=== PATIENT | male | born 1965 | race Caucasian/White ===

== ENCOUNTER 2022-08-22 14:22 | Emergency (ER) | payer OTHER, SELFPAY ==
--- NOTE | ~2022-08-22 | XR_ITS ---
EXAMINATION: XR knee RT min 4V DATE: 08/22/2022 15:30 INDICATION: One month of right knee pain TECHNIQUE: Anteroposterior, 2 oblique and crosstable lateral views of the right knee were obtained COMPARISON: None. FINDINGS: Alignment is normal. No fracture. Small marginal osteophytes at the medial in all 3 compartments wit h at least mild, potentially moderate joint space narrowing in the patellofemoral compartment. No kai dent joint space narrowing the medial and lateral compartment although this could be underestimated o n nonweightbearing imaging. No joint effusion/layering lipohemarthrosis. Soft tissues are unremarkabl e. IMPRESSION: 1. No right knee joint effusion or acute osseous abnormality. 2. Mild to moderate patellofemoral compartment predominant tricompartmental osteoarthritis. Reviewed, dictated and finalized at location A. IMPRESSION: 1. No right knee joint effusion or acute osseous abnormality. 2. Mild to moderate patellofemoral compartment predominant tricompartmental ost eoarthritis.
--- NOTE | ~2022-08-22 | XR_ITS ---
EXAMINATION: XR foot RT min 3V DATE: 08/22/2022 15:30 INDICATION: Ulcer at the lateral right foot TECHNIQUE: Dorsoplantar, two oblique and lateral views of the right foot were obtained. COMPARISON: None. FINDINGS: Pes planus suggested although specificities decreased on nonweightbearing imaging. Hallux valgus. The re is mild lateral subluxation at the second distal interphalangeal joint. Old healed fracture at the proximal diaphysis of the right fifth metatarsal. No acute fracture identified. Polyarticular osteoa rthritis, moderate severity at the naviculocuneiform and second tarsal metatarsal joints and mild at the remaining tarsal metatarsal, first metatarsophalangeal and several interphalangeal joints. Chroni c heterotopic ossification along the medial side of the head and neck the first metatarsal. No cortic al erosions or acute appearing periosteal reaction to suggest osteomyelitis. Small plantar calcaneal spur. No ankle joint effusion. Soft tissue swelling about the lateral aspect of the mid and forefoot. No evident soft tissue gas. IMPRESSION: 1. Mild to moderate polyarticular osteoarthritis in the right mid and forefoot. No acute osseous abno rmality. Reviewed, dictated and finalized at location A. IMPRESSION: 1. Mild to moderate polyarticular osteoarthritis in the right mid and forefoot. No acute osseous abnormality.
[2022-08-22 14:24] VITALS: BP 153/101; PULSE 112; RESP 20; TEMP 36.4; O2SAT 98
--- NOTE | 2022-08-22 15:06 | ED.LOWEXIN ---
HPI - Extremity Injury (Lower) General Chief Complaint: Extremity Injury, Lower Stated Complaint: knee pain Time Seen by Provider: 08/22/22 14:44 Source: patient Mode of arrival: ambulatory Limitations: no limitations History of Present Illness HPI Narrative: Patient is a 57 y/o male who presents to the ED with c/o R knee pain. Patient reports having pain persistently in his R medial knee for the past 1 month, occuring daily, worse with movement, bearing weight. He denies any injury or unusual activity. He has tried using an kylie bandage, tylenol/ibuprofen, lidocaine patches without much relief. He states he is having trouble even getting through an 8-hour shift at work due to the pain. Denies any significant swelling, redness, warmth to knee. Denies calf pain or swelling. Patient does also report having a slow healing wound to his right lateral foot which he has been bandaging himself. He denies history of diabetes. Denies any fevers or drainage. Patient is a daily drinker. Related Data Allergies Allergy/AdvReac Type Severity Reaction Status Date / Time No Known Allergies Allergy Mild Verified 08/22/22 14:26 Review of Systems Review of Systems: CONSTITUTIONAL: Denies fever, chills, or sweats. SKIN: See HPI. MUSCULOSKELETAL: See HPI. NEUROLOGIC: Denies tingling, numbness, or weakness. All systems reviewed & are unremarkable except as noted in HPI and below PMFSH Social History Social History (Updated 08/22/22 @ 15:28 by Misty Hagan PA-C) Smoking status: Never smoker Alcohol intake: current Alcohol use details: daily Exam Narrative: GENERAL: Well appearing, obese with BMI of 32.5, non-toxic, in no acute distress. HEAD: Normocephalic, atraumatic. NECK: Supple. No adenopathy, no masses. RESPIRATORY: Airway patent, respirations nonlabored. Clear to auscultation bilaterally, no rales, rhonchi, wheezing. CARDIOVASCULAR: Regular rate and rhythm without murmurs, rubs, or gallops. Pedal pulses 2+ and equal bilaterally. MUSCULOSKELETAL: Mild limited ROM of R knee flexion d/t pain. TTP along inferior medial joint space. No tenderness with ballottement of patella. No significant swelling noted. No warmth or erythema to anterior knee. No calf tenderness or edema. SKIN: Warm, dry, normal color. No rashes. Small 1 X 0.5cm ulceration to lateral edge of R distal foot, plantar surface. No eschar or necrosis present. Wound edges are pink and appear to be healing, without evidence of drainage/purulence. No surrounding erythema or warmth. No tenderness to palpation surrounding ulcer. NEURO: A&O X3. Speech clear. Cranial nerves II-XII grossly intact. Steady gait. No ataxic movements. PSYCHIATRIC: Appropriate mood and affect. Normal interaction. Course Vital Signs Vital signs: Vital Signs Temperature 97.6 F 08/22/22 14:24 Pulse Rate 112 H 08/22/22 14:24 Respiratory Rate 20 08/22/22 14:24 Blood Pressure 153/101 H 08/22/22 14:24 Pulse Oximetry 98 08/22/22 14:24 Oxygen Delivery Room Air 08/22/22 14:24 Temperature 97.3 F L 08/22/22 18:14 Pulse Rate 98 08/22/22 18:14 Respiratory Rate 18 08/22/22 18:14 Blood Pressure 167/97 H 08/22/22 18:14 Pulse Oximetry 99 08/22/22 18:14 Oxygen Delivery Room Air 08/22/22 14:24 MDM - Extremity Injury (Lower) MDM Narrative Medical decision making narrative: Patient presented to ED with 1 month history of right knee pain, also reporting ulcer to right lateral foot. Patient's injury is consistent with musculoskeletal etiology. No signs of neurologic or vascular compromise on physical examination. Compartments are soft without signs of compartment syndrome. XR of R knee showing osteoarthritis, no joint effusion or acute osseous abnormality. Ulcer of foot actually appears well, does not look acutely infected, no drainage, no signs of necrosis or eschar. XR of R foot without evidence for osteomyelitis or soft tissue gas. Basic blood work was o
[2022-08-22 15:33] LABS: Basophils Absolute Auto 0.1 K/mm3 (0.0-0.1); Eosinophils Absolute Auto 0.3 K/mm3 (0-0.3); Eosinophils Percent Auto 4.4 % (0-4.4); Hematocrit 41.4 % (42.0-52.0); Hemoglobin 13.6 g/dL (14.0-18.0); Immature Granulocyte Absolute 0.03 K/mm3 (0.00-0.031); Immature Granulocyte Percent A 0.5 % (0-0.5); Lymphocytes Absolute Auto 2.04 K/mm3 (0.9-3.2); Lymphocytes Percent Auto 34.7 % (18.3-44.2); Mean Corpuscular HGB Conc 32.9 g/dl (32-36); Mean Corpuscular Hemoglobin 34.2 pg (26-34); Mean Platelet Volume 8.8 fl (7.4-10.4); Monocytes Absolute Auto 0.7 K/mm3 (0.1-0.6); Monocytes Percent Auto 11.4 % (2.6-8.5); Neutrophils Absolute Auto 2.8 K/mm3 (1.3-6.7); Platelet Count Result 371 k/mm3 (150-375); Red Blood Count 3.98 M/mm3 (4.6-6.20); Red Cell Distribution Width 12.9 % (11.5-14.5); White Blood Count 5.9 K/mm3 (4.5-10.0)
[2022-08-22 15:46] LABS: Alanine Aminotransferase 44 U/L (6-50); Albumin Level 4.3 g/dL (3.5-5.1); Alkaline Phosphatase 75 U/L (38-126); Anion Gap 12 mmol/L (8-16); Aspartate Amino Transferase 82 U/L (17-59); Bilirubin,Total 0.3 mg/dL (0.2-1.3); Blood Urea Nitrogen 8 mg/dL (9-20); CRP < 0.5 mg/dL (<1.0); Calcium 8.8 mg/dL (8.4-10.2); Carbon Dioxide 21 mmol/L (22-30); Chloride 107 mmol/L (98-107); Estimated CRCL calculation 149 ml/min; Estimated Glomerular Filt Rate > 60; Glucose 110 mg/dL (65-110); Potassium 4.1 mmol/L (3.4-5.0); Sodium 140 mmol/L (137-145)
[2022-08-22] MEDS: KETOROLAC (*BKC) 60 MG/2 ML VIAL IM (16:34)
[2022-08-22 16:59] LABS: Hemoglobin A1C 5.5 % (<5.7)
[2022-08-22 18:14] VITALS: BP 167/97; PULSE 98; RESP 18; TEMP 36.3; O2SAT 99
== END 2022-08-22 18:05 | disposition home or self-care (01) ==
PROVIDERS: Emergency Provider Physician Assistant
DX: M25.561 Pain in right knee (principal); L97.511 Non-pressure chronic ulcer of other part of right foot limited to breakdown of skin; M17.11 Unilateral primary osteoarthritis, right knee; M19.071 Primary osteoarthritis, right ankle and foot
CPT/HCPCS: 36415; 73564; 73630; 80053; 83036; 85025; 86140; 96372; 99284; J1885

== ENCOUNTER 2023-09-04 12:45 | Day surgery (SDC) | payer OTHER, SELFPAY ==
[2023-09-04 12:28] VITALS: BMI 33.0
[2023-09-04 13:30] VITALS: BP 154/78; PULSE 112; RESP 19; O2SAT 94
[2023-09-04] MEDS: LACTATED RINGERS 1,000 ML 150 ML IV CONT (13:40)
--- NOTE | 2023-09-04 13:49 | WPDANESEPPF ---
Anes - Initial Pre Proc Eval Procedure: Operation Date: 09/04/23 16:30 Proposed Procedures p Esophagogastroduodenoscopy - Arias Cardoso MD Date/Time: 09/04/23 13:49 Surgeon: Arias Cardoso MD Pre Op Diagnosis: food bolus/foreign body Patient Data Age: 58 Gender: M Height: 1.83 m Weight: 110.3 kg Last Vital Signs Pulse 112 H 09/04/23 13:30 Resp 19 09/04/23 13:30 BP 154/78 H 09/04/23 13:30 Pulse Ox 94 09/04/23 13:30 O2 Del Method Room Air 09/04/23 13:30 Allergies Allergy/AdvReac Type Severity Reaction Status Date / Time No Known Allergies Allergy Mild Verified 09/04/23 13:18 Home Medications Medication Instructions Recorded Confirmed Type buprenorphine 12 mg-naloxone 3 mg 1 film buccal TID 09/04/23 09/04/23 History sublingual film celecoxib 200 mg capsule 200 mg PO DAILY 09/04/23 09/04/23 History ibuprofen 800 mg tablet 800 mg PO Q6H PRN Pain 09/04/23 09/04/23 History Patient hx anesthesia problems: none Family hx anesthesia problems: none Results Review: All pre-operative results and documents have been reviewed as part of the pre-operative evaluation. [facility] Social History Social History (Updated 08/22/22 @ 15:28 by Misty Hagan PA-C) Smoking status: Never smoker Alcohol intake: current Alcohol use details: daily Anes - Eval Final PreProcedure Day of Procedure 09/04/23 13:49 Patient weight: normal Heart: regular rate and rhythm Lungs: clear to auscultation Airway: Mallampati scale Neurological: alert and oriented Last oral intake: >/= 8 hours ASA classification: III Emergent: yes Anesthetic plan: proceed Anesthesia type and monitoring: general GIVS and standard monitoring Results Review: All pre-operative results and documents have been reviewed as part of the pre-operative evaluation. Informed Consent: The patient's anesthetic plan and its attendant risks and benefits were discussed with the patient/family/POA. Questions were solicited and answers provided to the satisfaction of the patient/family/POA.
--- NOTE | 2023-09-04 13:51 | PM.HPGS ---
History of Present Illness History of Present Illness Consent: Risks, benefits, and alternatives have been discussed and questions answered. Patient agrees to proceed with procedure. Chief complaint: food bolus/foreign body Narrative: Moshe Rivera is a 58 year old male with h/o dysphagia but never had EGD, here after eat steak last night, since unable to even drink. Review of Systems Review of Systems: All systems reviewed & are unremarkable except as noted in HPI and below PMFSH Past Medical History Medical History (Updated 09/04/23 @ 13:52 by Arias Cardoso MD) Food impaction of esophagus Social History Social History (Updated 08/22/22 @ 15:28 by Misty Hagan PA-C) Smoking status: Never smoker Alcohol intake: current Alcohol use details: daily Meds Home Medications and Allergies Home Medications Medication Instructions Recorded Confirmed Type buprenorphine 12 mg-naloxone 3 mg 1 film buccal TID 09/04/23 09/04/23 History sublingual film celecoxib 200 mg capsule 200 mg PO DAILY 09/04/23 09/04/23 History ibuprofen 800 mg tablet 800 mg PO Q6H PRN Pain 09/04/23 09/04/23 History Allergies Allergy/AdvReac Type Severity Reaction Status Date / Time No Known Allergies Allergy Mild Verified 09/04/23 13:18 Vital Signs Vital Signs - 24 hr 09/04/23 13:30 Pulse Rate 112 H Respiratory Rate 19 Blood Pressure 154/78 H Pulse Oximetry 94 Oxygen Delivery Room Air Exam Const: General: no acute distress Other: unable to swallow saliva HENMT: Face/Nose/Sinus: Normal nares present Eyes: General: appearance normal, both eyes and all related structures Neck: Neck: no JVD Resp: Auscultation: clear to auscultation bilaterally Cardio: Rate: regular rate Rhythm: regular rhythm GI: Inspection: non-distended GI Palp: Yes Soft to palpation Skin: General skin exam: normal color Neuro: General: gait normal Speech: normal speech Extrem: General: normal to inspection Psych: Mental Status: mental status grossly normal Assessment and Plan Assessment and plan (1) Food impaction of esophagus: Code(s): T18.128A - Food in esophagus causing other injury, initial encounter; W44.F3XA - Food entering into or through a natural orifice, initial encounter Status: Acute Assessment and Plan: urgent EGD to remove food bolus
[2023-09-04 14:21] VITALS: BP 146/81; PULSE 102; RESP 16; O2SAT 92
[2023-09-04 14:31] VITALS: BP 147/80; PULSE 97; RESP 24; O2SAT 97
[2023-09-04 14:41] VITALS: BP 152/82; PULSE 99; RESP 22; O2SAT 97
== END 2023-09-04 15:25 | disposition home or self-care (01) ==
PROVIDERS: PCP Internal Medicine; Visit Provider Internal Medicine Gastroenterology
PROC: 0DJ08ZZ Inspection of Upper Intestinal Tract, Via Natural or Artificial Opening Endoscopic (ICD-10-PCS; CPT 43235; principal; 2023-09-04 16:30)
DX: T18.128A Food in esophagus causing other injury, initial encounter (principal); W44.F3XA Food entering into or through a natural orifice, initial encounter; K22.2 Esophageal obstruction; K20.90 Esophagitis, unspecified without bleeding
CPT/HCPCS: 43247; J2704; J7120

== ENCOUNTER 2024-09-08 14:07 | Outpatient (CLI) | payer OTHER, SELFPAY ==
--- NOTE | ~2024-09-08 | MR_ITS ---
MRI of the right shoulder Technique: Axial proton-density fat-sat images, coronal proton density fat-sat and T2 fat-sat images, and sagittal T1-weighted and T2 fat-sat images were acquired. Clinical History: Pain Findings: There is moderate to advanced AC joint degenerative change with bony productive change abou t the joint and small amount of fluid in the joint space. Coracoclavicular, coracoacromial, and corac ohumeral ligaments appear intact. Supraspinatus and infraspinatus tendons demonstrate moderate to severe tendinosis without partial or full-thickness tear. Subscapularis tendon is intact with mild to moderate tendinosis. Tendon of the l patel head of the biceps is intact. No labral tear evident. Inferior glenohumeral ligament is intact. There is mild chondromalacia along the medial aspect of the humeral head. There is fluid distention of the subacromial/subdeltoid bursa. Some fluid distention o f the subcoracoid bursa. No muscle atrophy or edema. Impression: Subacromial/subdeltoid bursitis. Subcoracoid bursitis. Rotator cuff tendinosis. Moderate to advanced AC joint degenerative change. Reviewed, dictated and finalized at location . Impression: Subacromial/subdeltoid bursitis. Subcoracoid bursitis. Rotator cuff tendinosis. Moderate to advanced AC joint degenerative change.
--- OUTSIDE RECORDS SUMMARY | 2024-09-08 14:14 | XMS_ITS | Patient Health Record ---
Author Organization [facility] [employer] [facility] Address [address] [facility] [address] [place] [address] Care Team Providers Care Sql Report Writer Name Role Phone Sis Turcios Unavailable [phone] Reason For Referral No Information Medications Medication SIG (Take, Route, Fr equency, Duration) Notes Start Date End Date Status Cephalexin 500 MG Oral Ac tive Plan Of Treatment No Information Insurance Providers Payer Name Payer Address Payer Phone Subscriber Number Group Number Insured Name Patient Relationship to Insured Coverage Start Date Coverage End Date [facility] [address] [place] [address] [id number] LIZBETH WOODWARD Self - patient is the insured
--- OUTSIDE RECORDS SUMMARY | 2024-09-08 14:15 | XMS_ITS | Clinical Summary ---
Author Organization [facility] Address [address] [place] [address] Care Team Providers Care Folder And Notcher Name Role Phone Cheo Tyesha Del Valle NP Primary Care Provider [phone] Allergies Active Allergy Reactions Criticality Noted Date Comments Hazelnut Unknown 11/18/2022 Medications traMADoL (ULTRAM) 50 mg tablet Take 1 tablet (50 mg total) by mouth every 8 (eight) hours as needed for pain for up to 7 days 20 tablet 11/18/2022 Active Social History Tobacco Use Types Packs/Day Years Used Date Smoking Tobacco: Never Assessed Personal Safety Answer Date Recorded Getting School Help Needed Not on file 05/10 Sex and Gender Information Value Date Recorded Sex Assigned at Not on file Legal Sex Male 3:19 PM CDT Gender Identity Not on file Sexual Orientation Not on file Plan of Treatment Health Maintenance Due Date Last Done Comments Colon Cancer Screening-Colonoscopy 1965 Depression Screening 1966 Hepatitis C Screening 1966 Prostate Cancer Screening-PSA 1966 Regular Well Visit/Exam 18-64 02/16/1984 Pneumococcal vaccine <65 (1 of 2 - PCV) 1985 Zoster Vaccine (1 of 2) 02/16/2016 Covid-19 Vaccine (3 - season) 2023, 04/25/2020 Influenza Vaccine (#1) 2024 01/26/2014 DTaP/Tdap/Td Vaccine (2 - Td or Tdap) 11/12/2032 Hepatitis B Screening Completed 11/12/2022 Insurance [facility] Address: [place] [address] Care Teams Folder And Notcher Relationship Specialty Start Date End Date Tyesha Grider NP PCP - General Nurse Practitioner 11/13/22
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
--- OUTSIDE RECORDS SUMMARY | 2024-09-08 14:15 | XMS_ITS | Patient Health Record ---
Author Organization 1 OF Mikhail damico [facility] Address [address] [facility] [address] [facility] [address] [place] [address] Care Team Providers Care Box Car Loader Name Role Phone Mehran García M.D. Primary Care Provider Juve Mcgowan [phone] Reason For Referral No Information Encounters Encounter Location Date Provider Diagnosis 1 OF Mikhail Hurley [facility] [address] [place] [id number] 11/28/2023 Juve Hurley Plan Of Treatment No Information
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
--- OUTSIDE RECORDS SUMMARY | 2024-09-08 14:15 | XMS_ITS | Referral Summary ---
Author Organization [facility] Address [address] [place] [address] Care Team Providers Care Fishery Biologist Name Role Phone Tyesha Grider Ivon VINES Primary Care Provider [phone] Allergies Active Allergy Reactions Criticality Noted Date [...] Orientation Not on file Plan of Treatment Not on file Insurance [facility] CHOICE PLUS [facility] HMO/PPO Address: [facility] [id number] [place] [address] Care Teams Fishery Biologist Relationship Specialty Start Date End Date Tyesha Grider NP PCP - General Nurse Practitioner 11/13/22
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
== END 2024-09-08 14:08 | disposition home or self-care (01) ==
PROVIDERS: PCP Internal Medicine; Visit Provider Physician Assistant Surgical
DX: M75.51 Bursitis of right shoulder (principal); M19.012 Primary osteoarthritis, left shoulder; M75.31 Calcific tendinitis of right shoulder
CPT/HCPCS: 73221